=== PATIENT | male | born 1980 | race Caucasian/White ===

== ENCOUNTER 2016-10-27 14:37 | Emergency (ER) | payer OTHER ==
[~2016-10-27] VITALS: Ht 185.4 cm; Wt 104.3 kg
--- NOTE | 2016-10-27 17:42 | ED NEURO DEFICIT/STROKE ---
History of Present Illness General Chief Complaint: General Adult Stated Complaint: TOES AND FINGERS FEEL NUMB Source: patient Exam Limitations: no limitations Vital Signs & Intake/Output Vital Signs & Intake/Output Vital Signs Date Time Temp Pulse Resp B/P Pulse O2 O2 Flow FiO2 Ox Delivery Rate 10/27 1759 97.0 88 20 158/88 98 Room Air 10/27 1443 96.1 92 18 164/90 98 Room Air Allergies Coded Allergies: NO KNOWN ALLERGIES (04/03/12) Reconcile Medications Methylprednisolone. (Medrol) 4 MG TAB.DS.PK 1 DP PO AD sciatica 6 on day 1 then reduce by one tablet daily until gone Triage Note: 36 Y/O MALE C/O INTERMITTENT FINGERS AND TOES "TINGLING" THOUGHOUT THE DAY. STATES THIS HAPPENED BEFORE AND IT WAS RELATED TO HIS SCIATIC NERVE. AT PRESENT, STATES "MY HANDS STOPPED BUT MY TOES FEEL LIKE THEYRE ASLEEP". PT AMBULATING WITHOUT DIFFICULTY AND USING HANDS TO TEXT WITHOUT DIFFICULTY NOTED. STATES "IM SUPPOSED TO GO TO WORK AND THERES NO WAY I CAN GO LIKE THIS". DENIES PAIN. DENIES SOB. DENIES OTHER COMPLAINTS TAKEN FOR EKG. Triage Nurses Notes Reviewed? yes HPI: This patient is a 36 year old male with a past medical history including sciatica who presented for numbness in his right toes. He reported that 1 uear ago he had similar symptoms with pain in his back which radiated to his right toes and caused numbness. He was put on prednisone and the pain resolved. The patient reported that this morning he woke up with numbness in his right fingers and right toes. He reported that the numbness in his right fingers resolved. He took Advil and the numbness in his toes resolved. He denied any back pain, headaches, visual changes, difficulty with speech, chest pain, shortness of breath, weakness, tingling, trauma, or any other associated symptoms. 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 No (BUFFY JIMENEZ PA-C) Review of Systems Review of Systems Constitutional: Reports: no symptoms. EENTM: Reports: no symptoms. Respiratory: Reports: no symptoms. Cardiovascular: Reports: no symptoms. GI: Reports: no symptoms. Musculoskeletal: Reports: no symptoms. Skin: Reports: no symptoms. Neurological/Psychological: Reports: see HPI. All Other Systems: Reviewed and Negative (BUFFY JIMENEZ PA-C) Physical Exam Physical Exam General Appearance: well developed/nourished, no apparent distress, alert, awake Cranial Nerves: normal hearing, normal speech, PERRL Comments: Well-developed well-nourished person in no acute distress HEENT: Normal EENT exam, head normocephalic/atraumatic PERRLA bilaterally Neck: Supple, no lymphadenopathy, normal range of motion without pain or tenderness Back: Normal gait. No midline tenderness. No paraspinal musculature tenderness Cardiovascular: Regular rate and rhythm with no murmurs Extremity: Normal and equal pulses Neuro: Alert oriented x3, motor sensory normal, cranial nerves II through XII grossly intact. 5 out of 5 muscular strength in all extremities Skin: No appreciable rash on exposed skin, skin is warm and dry. Psych: Mood and affect is normal, memory and judgment is normal. Core Measures CVA/TIA Diagnosis: No Severe Sepsis Present: No Septic Shock Present: No (BUFFY JIMENEZ PA-C) Progress Differential Diagnosis: Love's Palsy, drug intoxication, electrolyte imbalance, encephalitis, hypoglycemia, intracranial Hem., intracranial mass/tumor, stroke, subarachnoid Hem., vertebrobasilar insuff., raynaud's phenomenon, paresthesia, sciatica Plan of Care: Orders Procedure Date/time Status EKG 10/27 1444 Active Initial ED EKG: normal axis, normal intervals, normal sinus rhythm, no ST T wave changes, 88 bpm (BUFFY JIMENEZ PA-C) Departure Departure Disposition: HOME OR SELF CARE Condition: Stable Clinical Impression Primary Impression: Paresthesia Referrals: PATIENT HAS NO PRIMARY CARE DR (PCP/Family) Additional Instructions: Take Medrol-dose pack as prescribed. Rest. Return for any worsening symptoms or concerns. Departure Forms: Customer Survey General Discharge Information Prescriptions: Current Visit Scripts Methylprednisolone. (Medrol) 1 DP PO AD #1 DP 6 on day 1 then reduce by one tablet daily until gone (BARBARA CHU,BUFFY) PA/LEATHER WORKER Co-Sign Statement Statement: ED Attending supervision documentation- [] I saw and evaluated the patient. I have also reviewed all the pertinent lab results and diagnostic results. I agree with the findings and the plan of care as documented in the PA's/LEATHER WORKER's documentation. [X] I have reviewed the ED Record and agree with the PA's/LEATHER WORKER's documentation. [] Additions or exceptions (if any) to the PAs/LEATHER WORKER's note and plan are summarized below: [] (IDA HUNTER DO
[2016-10-27] MEDS ORDERED: MEDROL4 M2 PO (17:52)
[2016-10-27 17:59] VITALS: BP 158/88
== END 2016-10-27 18:00 ==
LOC: ERH 14:37
DX: R20.2 Paresthesia of skin (principal)
CPT/HCPCS: 93005; 93010

== ENCOUNTER 2017-10-14 20:08 | Emergency (ER) | payer SELFPAY ==
[~2017-10-14] VITALS: Ht 188 cm; Wt 95.3 kg
[~2017-10-14 20:08] MED LIST: CYCLOBENZAPRINE10 M1 PO; IBUPROFEN800 M1 PO; MEDROL4 M2 PO; NORCO 5-325 TA1 EACH PO; OXYCODONE HCL5 M1 PO; PENICILLIN V P500 M1 PO
[2017-10-14 20:19] VITALS: BP 127/67
[2017-10-14] MEDS ORDERED: BACTRIM DS TAB1 EACH PO (20:27)
--- NOTE | 2017-10-14 20:27 | ED GENERAL ADULT ---
History of Present Illness General Chief Complaint: General Adult Stated Complaint: "MY FACE IS SWOLLEN I HAVE A SINUS INFECTION" Source: patient Exam Limitations: no limitations Vital Signs & Intake/Output Vital Signs & Intake/Output Vital Signs Date Time Temp Pulse Resp B/P B/P Pulse O2 O2 Flow FiO2 Mean Ox Delivery Rate 10/14 2024 Room Air 10/14 2018 98.6 80 20 127/67 97 Room Air ED Intake and Output 03/ 0000 10/14 1200 Intake Total 0 Output Total Balance 0 Intake, Oral 0 Patient 210 lb Weight Weight Reported by Patient Measurement Method Allergies Coded Allergies: NO KNOWN ALLERGIES (08/14/17) Reconcile Medications Oxycodone HCl 5 MG TABLET 1 TAB PO BIDP PRN Lower Back Pain Sulfamethoxazole/Trimethoprim (Bactrim Ds Tablet) 800 MG-160 MG TABLET 1 TAB PO BID FACIAL SWELLING/CELLULITIS Triage Note: PT TO TRIAGE C/O SWOLLEN FACE UNDER EYES, PAIN, NASAL D/C. PER PT "IT HAS TO BE A SINUS INFECTION, EVERYONE AT WORK HAS ONE." Triage Nurses Notes Reviewed? yes Onset: Abrupt Duration: hour(s):, constant, continues in ED Timing: recent history Injury Environment: home HPI: 37-year-old male comes into the emergency room for further evaluation of swelling to the right side of his nose. Patient reports that the symptoms being going on since earlier today. Patient reports that he was working outside today and things were being blown up into his nose. He reports that he has a history of poor teeth. He has pain to the area. Denies any fever chills vomiting. (Jovan Ayala) Past History Travel History Traveled to [place] past 21 day No Medical History Any Pertinent Medical History? 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 No (Jovan Ayala) Review of Systems Review of Systems Constitutional: Reports: no symptoms. EENTM: Reports: see HPI. Respiratory: Reports: no symptoms. Cardiovascular: Reports: no symptoms. GI: Reports: no symptoms. Genitourinary: Reports: no symptoms. Musculoskeletal: Reports: no symptoms. Skin: Reports: see HPI. Neurological/Psychological: Reports: no symptoms. Hematologic/Endocrine: Reports: no symptoms. Immunologic/Allergic: Reports: no symptoms. All Other Systems: Reviewed and Negative (Jovan Ayala) Physical Exam Physical Exam General Appearance: well developed/nourished, alert, awake Head: swelling to right side of face below right eye and lateral to nose Eyes: Bilateral: normal appearance. Ears, Nose, Throat: hearing grossly normal, poor dentition, multiple broken teeth, no obvious abscess, Some swelling in the posterior nostril, pink tissue, moist, Neck: normal inspection Respiratory: normal breath sounds, no respiratory distress Back: normal inspection Extremities: normal inspection, normal range of motion, no edema Neurologic/Psych: awake, alert, oriented x 3, normal gait Skin: intact, normal color Core Measures ACS in differential dx? No CVA/TIA Diagnosis: No Sepsis Present: No Sepsis Focused Exam Completed? No (Jovan Ayala) Progress Differential Diagnoses I considered the following diagnoses in my evaluation of the patient: Nasal abscess, cellulitis, allergic reaction, dental abscess, nasal polyp, Plan of Care: 10/14/2017 9:09:02 PM Patient clinically looks well. I expanded the patient there potentially could be an abscess. He does not want to wait for any type of imaging. Patient was referred to ear nose and throat doctor and prescribed Bactrim. Told to use warm compresses over the area. He was seen in triage because he did not want to stay. He understands and agrees with plan of care. He will call tomorrow for follow-up appointment. Initial ED EKG: none (Jovan Ayala) Departure Departure Disposition: HOME OR SELF CARE Condition: Stable Clinical Impression Primary Impression: Facial swelling Referrals: Gina MANCIA,Gabriel Dee Patient Has No Primary Care Dr (PCP/Family) Additional Instructions: Take Bactrim as prescribed. Warm compresses. Follow-up with ear nose and throat doctor. Return if any concerns worsening symptoms. Please go over all results of today's visit with your primary care doctor. Contact your primary care doctor to let them know you were here in the emergency room. There may be nonspecific findings which may not be related to your visit today here in the emergency room but may require further evaluation and chronic monitoring by your primary care doctor. If you had a laceration today the chance of foreign body always remains. You should follow-up with your primary care doctor for recheck in 3-5 days for a wound check. If you had an x-ray done there is a chance that a fracture could have been missed on initial read and you should follow-up with your primary care doctor for repeat x-rays if symptoms persist. If your blood pressure was elevated here in the emergency room please have rechecked by [facility] primary care doctor within the next 48. If you were prescribed a narcotic here in the emergency room or any type of controlled substances you're not allowed to drive while taking this medication or operate any type of heavy machinery. Narcotics can make you feel lightheaded dizziness nausea and can cause constipation. You may need to merchandise pickup/receiving associate a stool softener. Thank you for choosing [facility] emergency room. Please return to the emergency room immediately if you have any other concerns worsening of symptoms. Departure Forms: Customer Survey General Discharge Information Prescriptions: Current Visit Scripts Sulfamethoxazole/Trimethoprim (Bactrim Ds Tablet) 1 TAB PO BID #20 TAB (Jovan Ayala) PA/SUSTAIN ENGINEER Co-Sign Statement Statement: ED Attending supervision documentation- I saw and evaluated the patient. I have also reviewed all the pertinent lab results and diagnostic results. I agree with the findings and the plan of care as documented in the PA's/SUSTAIN ENGINEER's documentation. x I have reviewed the ED Record and agree with the PA's/SUSTAIN ENGINEER's documentation. [] Additions or exceptions (if any) to the PAs/SUSTAIN ENGINEER's note and plan are summarized below: [] (Carlton Saxena MD) Critical Care Note Critical Care Note Critical Care Time: non-applicable (Jovan Ayala)
== END 2017-10-14 20:38 ==
LOC: ERH 20:08
DX: R22.0 Localized swelling, mass and lump, head (principal)

== ENCOUNTER 2017-11-04 08:26 | Emergency (ER) | payer SELFPAY ==
[~2017-11-04] VITALS: Ht 182.9 cm; Wt 104.3 kg
[~2017-11-04 08:26] MED LIST changes: +BACTRIM DS TAB1 EACH PO
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
[2017-11-04 08:40] VITALS: BP 144/79
[2017-11-04] MEDS ORDERED: CLEOCIN HCL300 M1 PO (08:40)
== END 2017-11-04 08:44 ==
LOC: ERH 08:26
DX: K05.319 Chronic periodontitis, localized, unspecified severity (principal)

== ENCOUNTER 2017-11-10 07:06 | Emergency (ER) | payer SELFPAY ==
[~2017-11-10] VITALS: Ht 182.9 cm; Wt 104.3 kg
[~2017-11-10 07:06] MED LIST changes: +CLEOCIN HCL300 M1 PO
[2017-11-10 07:08] VITALS: BP 150/74
--- NOTE | 2017-11-10 08:11 | ED GENERAL ADULT ---
History of Present Illness General Chief Complaint: Lower Extremity Injury Stated Complaint: RT KNEE PAIN S/P TWISTINGIT YEST Source: patient Exam Limitations: no limitations Vital Signs & Intake/Output Vital Signs & Intake/Output Vital Signs Date Time Temp Pulse Resp B/P B/P Pulse O2 O2 Flow FiO2 Mean Ox Delivery Rate 11/10 0708 96.9 97 18 150/74 98 Room Air Room Air Allergies Coded Allergies: NO KNOWN ALLERGIES (08/14/17) Reconcile Medications Clindamycin HCl (Cleocin HCl) 300 MG CAPSULE 1 CAP PO TID gum abscess Oxycodone HCl 5 MG TABLET 1 TAB PO BIDP PRN Lower Back Pain Triage Note: PT TO ED WITH S/P SLIP ON ICE "I DIDN'T FALL, I THINK I JUST PULLED SOME MUSCLES". PT C/O RIGHT KNEE PAIN. AMBULATORY INTO TRIAGE, TOOK ADVIL THIS AM, REFUSING PAIN MEDS IN TRIAGE. Triage Nurses Notes Reviewed? yes Onset: Abrupt Duration: day(s): (1), better, constant, continues in ED Timing: single episode today Injury Environment: home Severity: mild, moderate Severity Numbers: 7 No Modifying Factors: none HPI: 37 male presents for evaluation of pain swelling in the right knee. He states that yesterday while he was walking he twisted the knee causing pain that has been persistent. He states that the pain is located in the back of the knee and he feels like there is swollen. He states it feels like a pulled muscle. He's been taking Advil at home with some improvement. He is able to walk without difficulty. He denies any direct trauma to the knee. No numbness or tingling no ankle pain no hip pain. No calf swelling or tenderness. Past History Travel History Traveled to [place] past 21 day No Medical History Any Pertinent Medical History? 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 No Review of Systems Review of Systems Constitutional: Reports: no symptoms. EENTM: Reports: no symptoms. Respiratory: Reports: no symptoms. Cardiovascular: Reports: no symptoms. GI: Reports: no symptoms. Genitourinary: Reports: no symptoms. Musculoskeletal: Reports: joint pain, joint swelling, muscle pain, muscle stiffness. Skin: Reports: no symptoms. Neurological/Psychological: Reports: no symptoms. Hematologic/Endocrine: Reports: no symptoms. Immunologic/Allergic: Reports: no symptoms. All Other Systems: Reviewed and Negative Physical Exam Physical Exam General Appearance: well developed/nourished, no apparent distress, alert, awake Head: atraumatic, normal appearance Eyes: Bilateral: normal appearance, EOMI. Ears, Nose, Throat: hearing grossly normal Neck: normal inspection, supple, full range of motion Respiratory: no respiratory distress Cardiovascular: normal peripheral pulses Peripheral Pulses: 2+ radial (R), 2+ radial (L) Back: normal inspection, normal range of motion Extremities: THERE IS MILD DIFFUSE SWELLING IN THE RIGHT KNEE. fULL RANGE OF MOTION OF THE RIGHT KNEE IS INTACT. nO TENDERNESS TO PALPATION. pATIENT IS ABLE TO WALK AND BEAR WEIGHT. nO ERYTHEMA BRUISING OR CREPITUS NEUROVASCULAR SUPPLY IS INTACT TO THE RIGHT LOWER EXTREMITY.NO CALF SWELLING OR TENDERNESS Neurologic/Psych: no motor/sensory deficits, awake, alert, oriented x 3, normal gait Skin: intact, normal color, warm/dry Core Measures ACS in differential dx? No CVA/TIA Diagnosis: No Sepsis Present: No Sepsis Focused Exam Completed? No Progress Differential Diagnoses I considered the following diagnoses in my evaluation of the patient: [Fracture, sprain, strain, ligamentous tear, arthritis] Plan of Care: Patient seen and evaluated. He reports knee pain after twisting it. There was no direct trauma. He has no point tenderness to suggest fracture. He is able to walk and bear weight. No x-rays indicated at this time. Massimo wrap applied. Rest ice elevation compression. Tylenol ibuprofen as needed for pain. Patient declines any medication here. Follow-up with primary care doctor advised he may need imaging or physical therapy in the future. Discussed return precautions patient appears well he agrees. Initial ED EKG: none Departure Departure Disposition: HOME OR SELF CARE Condition: Stable Clinical Impression Primary Impression: Right knee sprain Qualifiers: Encounter type: initial encounter Involved ligament of knee: unspecified ligament Qualified Code: S83.91XA - Sprain of unspecified site of right knee, initial encounter Referrals: Patient Has No Primary Care Dr (PCP/Family) Additional Instructions: Rest, avoid excessive weightbearing and physical activity. The elevated and apply ice for 15-20 minutes every few hours and ibuprofen 800 mg every 8 hours with food as needed for pain. Tylenol can also be used 1000 mg every 6 hours as needed. Wear Massimo wrap. Monitor symptoms of pain persists follow-up with primary care doctor for imaging therapy. Return with any concerns. Departure Forms: Customer Survey General Discharge Information Critical Care Note Critical Care Note Critical Care Time: non-applicable
== END 2017-11-10 08:17 ==
LOC: ERH 07:06
DX: S83.91XA Sprain of unspecified site of right knee, initial encounter (principal); X50.9XXA Other and unspecified overexertion or strenuous movements or postures, initial encounter; Y93.01 Activity, walking, marching and hiking; Y92.9 Unspecified place or not applicable
CPT/HCPCS: 99282